=== PATIENT | male | born 1960 ===

== ENCOUNTER 2018-01-12 12:43 | Emergency (ER) | payer BC ==
[2018-01-12] MEDS ORDERED: TETANUS & DIPHTHERIA TOX,ADULT 0.5 ML VIAL ONE (13:16)
[2018-01-12] MEDS ORDERED: LIDOCAINE 1% MPF 30 ML VIAL ONE (13:16)
--- NOTE | 2018-01-12 14:11 | RAD REPORT ---
EXAM DESCRIPTION: RAD - Chest Single View - 01/12/2018 2:01 pm CLINICAL HISTORY: Left-sided chest and rib pain COMPARISON: None. TECHNIQUE: AP portable chest image was obtained 1344 hours . FINDINGS: Lungs are clear. Heart and vasculature are normal. No measurable pleural effusion and no p neumothorax. No gross rib abnormality seen. Fine rib detail is limited on portable imaging. No acute bone finding suspected. No acute aortic findings suspected. IMPRESSION: No acute cardiopulmonary process.
--- NOTE | 2018-01-12 14:14 | RAD REPORT ---
EXAM DESCRIPTION: RAD - Hand Right 3 View - 01/12/2018 2:01 pm CLINICAL HISTORY: Fall, right hand pain, laceration COMPARISON: None. FINDINGS: No fracture is identified. There is no dislocation or periosteal reaction noted. Configur ation of the scaphoid bone is believed to be normal variant rather than scaphoid fracture. Correlatio n can be made with any point tenderness at the anatomic snuff box. Patient has a wide flattened conto ur to the fourth proximal phalanx head. The joint space is narrowed. Soft tissues are prominent. This arthritic pattern maybe from remote trauma. No foreign body in the soft tissues. IMPRESSION: No acute right hand fracture identified. Degenerative changes to the fourth PIP joint may be the sequela of remote trauma. Configuration of the scaphoid is believed to be normal variant rather than scaphoid fracture. Follow- up or directed imaging could be performed if the patient has point tenderness at the anatomic snuff b ox.
--- NOTE | 2018-01-12 14:41 | EDPHYS ---
Physician Documentation [facility] Name: Arnel Rees Age: 57 yrs Sex: Male : 1960 Arrival Date: 01/12/2018 Time: 12:47 Bed 27 Private MD: None, None ED Physician Gibran Dillard HPI: 01/12 13:59 This 57 yrs old Male presents to ER via Ambulatory with complaints of Fall Injury - LAC kb TO HAND, Pain All Over. 13:59 Details of fall: The patient fell from a height, from a ladder, approximately 3 feet. kb Onset: The symptoms/episode began/occurred just prior to arrival. Associated injuries: The patient sustained injury to the chest, specifically the left lateral anterior chest, pain with breathing, pain with movement, tenderness, right hand, painful injury, heel of left hand, laceration, 4 cm(s). Severity of symptoms: At their worst the symptoms were moderate, in the emergency department the symptoms are unchanged. The patient has not experienced similar symptoms in the past. The patient has not recently seen a physician. Historical: - Allergies: 12:57 No Known Allergies; aj1 - Home Meds: 12:57 None [Active]; aj1 - PMHx: 12:57 Hyperlipidemia; aj1 - Immunization history:: Flu vaccine is up to date. - Social history:: Smoking status: Patient uses tobacco products, smokes one-half pack cigarettes per day. - Immunization history: Last tetanus immunization: unknown. - Ebola Screening: : Patient denies travel to an Ebola-affected area in the 21 days before illness onset. ROS: 13:58 Constitutional: Negative for fever, chills, and weight loss, Eyes: Negative for injury, kb pain, redness, and discharge, ENT: Negative for injury, pain, and discharge, Neck: Negative for injury, pain, and swelling, Respiratory: Negative for shortness of breath, cough, wheezing, and pleuritic chest pain, Abdomen/GI: Negative for abdominal pain, nausea, vomiting, diarrhea, and constipation, Neuro: Negative for headache, weakness, numbness, tingling, and seizure. 13:58 Cardiovascular: Positive for chest pain, of the left lateral anterior chest, Negative for edema, orthopnea, palpitations, paroxysmal nocturnal dyspnea. 13:58 MS/extremity: Positive for pain, tenderness, of the right hand. 13:58 Skin: Positive for laceration(s), of the heel of left hand. Exam: 13:55 Constitutional: This is a well developed, well nourished patient who is awake, alert, kb and in no acute distress. Head/Face: Normocephalic, atraumatic. Cardiovascular: Regular rate and rhythm with a normal S1 and S2. No gallops, murmurs, or rubs. Normal PMI, no JVD. No pulse deficits. Respiratory: Lungs have equal breath sounds bilaterally, clear to auscultation and percussion. No rales, rhonchi or wheezes noted. No increased work of breathing, no retractions or nasal flaring. Abdomen/GI: Soft, non-tender, with normal bowel sounds. No distension or tympany. No guarding or rebound. No evidence of tenderness throughout. Neuro: Awake and alert, GCS 15, oriented to person, place, time, and situation. Cranial nerves II-XII grossly intact. Motor strength 5/5 in all extremities. Sensory grossly intact. Cerebellar exam normal. Normal gait. 13:55 Chest/axilla: Inspection: normal, Palpation: tenderness, that is moderate, of the left lateral anterior chest, that totally reproduces the patient's complaints. 13:55 Musculoskeletal/extremity: Extremities: grossly normal except: noted in the right hand: pain, ROM: intact in all extremities, Circulation is intact in all extremities. Sensation intact. 13:55 Skin: injury, laceration(s), the wound is approximately 4 cm(s), of the heel of left hand, that can be described as clean, no foreign body, linear, without bleeding. Vital Signs: 12:57 BP 145 / 92; Pulse 99; Resp 18; Temp 97.1; Pulse Ox 99% on R/A; Weight 77.11 kg (R); aj1 Height 5 ft. 10 in. (177.80 cm); Pain 8/10; 14:15 BP 140 / 8; Pulse 90; Resp 17; Pulse Ox 99% on R/A; kr2 12:57 Body Mass Index 24.39 (77.11 kg, 177.80 cm) aj1 [place] Coma Score: 13:19 Eye Response: spontaneous(4). Verbal Response: oriented(5). Motor Response: obeys kr2 commands(6). Total: 15. Trauma Score (Adult): 13:19 Eye Response: spontaneous(1); Verbal Response: oriented(1); Motor Response: obeys kr2 commands(2); Systolic BP: > 89 mm Hg(4); Respiratory Rate: 10 to 29 per min(4); [place] Score: 15; Trauma Score: 12 Laceration: 14:39 Wound Repair of 4cm ( 1.6in ) subcutaneous laceration to heel of left hand. Linear kb shaped.. Distal neuro/vascular/tendon intact. Anesthesia: Wound infiltrated with 4 mls of 1% lidocaine. Wound prep: Extensive cleansing with hibiclenz by me, Wound irrigation with saline by me. Skin closed with 6 4-0 Prolene using interrupted sutures and sterile technique. Dressed with Neosporin, 4x4's. Patient tolerated well. MDM: 13:01 Patient medically screened. kb 13:55 Data reviewed: vital signs, nurses notes. Data interpreted: Pulse oximetry: on room air kb is 99 %. Interpretation: normal. 14:40 Counseling: I had a detailed discussion with the patient and/or guardian regarding: the kb historical points, exam findings, and any diagnostic results supporting the discharge/admit diagnosis, radiology results, the need for outpatient follow up, a family practitioner, to return to the emergency department if symptoms worsen or persist or if there are any questions or concerns that arise at home. 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 Exp: kr2 02/24/2020. Lot #: [id number]. } Route: IM; Site: left deltoid; 14:28 Follow up: Response: No adverse reaction kr2 14:28 Drug: Lidocaine (2 %) 1 vials {Note: Administered by MAXINE English.} Volume: 5 ml; kr2 Route: Infiltration; 14:49 Follow up: Response: No adverse reaction kr2 Disposition: 16:53 Co-signature as Attending Physician, Gibran Dillard MD. rn Disposition: 01/12/18 14:41 Discharged to Home. Impression: Contusion of left front wall of thorax, Laceration without foreign body of left hand. - Condition is Stable. - Discharge Instructions: Chest Contusion, [id number], Laceration Care, Adult, [id number]. - Prescriptions for Tylenol- Codeine #3 300-30 mg Oral Tablet - take 1 tablet by ORAL route every 6 hours As needed; 15 tablet. - Medication Reconciliation Form, Thank You Letter, Antibiotic Education, Prescription Opioid Use form. - Follow up: Emergency Department; When: As needed; Reason: Worsening of condition. Follow up: Private Physician; When: 2 - 3 days; Reason: Recheck today's complaints, Continuance of care, Re-evaluation by your physician. Signatures: Dispatcher [employer] EDMS Lina Jones, ZIPPER SLIDE ATTACHER-C ZIPPER SLIDE ATTACHER-Ckb Altagracia Fernandez RN RN aj1 Gibran Dillard MD MD rn Reaves, Karey, RN RN kr2 Corrections: (The following items were deleted from the chart) 14:53 14:41 01/12/2018 14:41 Discharged to Home. Impression: Contusion of left front wall of kr2 thorax; Laceration without foreign body of left hand. Condition is Stable. Forms are Medication Reconciliation Form, Thank You Letter, Antibiotic Education, Prescription Opioid Use. Follow up: Emergency Department; When: As needed; Reason: Worsening of condition. Follow up: Private Physician; When: 2 - 3 days; Reason: Recheck today's complaints, Continuance of care, Re-evaluation by your physician. kb
--- NOTE | 2018-01-12 14:41 | ER ---
Nurse's Notes [facility] Name: Arnel Rees Age: 57 yrs Sex: Male : 1960 Arrival Date: 01/12/2018 Time: 12:47 Bed 27 Private MD: None, None Diagnosis: Contusion of left front wall of thorax;Laceration without foreign body of left hand Presentation: 01/12 12:55 Presenting complaint: Patient states: He was working on the ceiling and he lost his aj1 balance fell off the ladder approximately 3 feet. Patient reports landing on his left side, reports pain to left ribs, left hand and right hand. Laceration to left hand covered with a bandage. Denies hitting head, no LOC, no vomiting. Transition of care: patient was not received from another setting of care. Onset of symptoms was January 12, 2018 at 11:00. Risk Assessment: Do you want to hurt yourself or someone else? Patient reports no desire to harm self or others. Initial Sepsis Screen: Does the patient meet any 2 criteria? HR > 90 bpm. No. Patient's initial sepsis screen is negative. Does the patient have a suspected source of infection? No. Patient's initial sepsis screen is negative. Care prior to arrival: None. 12:55 Method Of Arrival: Ambulatory aj1 12:55 Acuity: MAR[place] 4 aj1 13:20 Mechanism of Injury: Fall from ladder approximately 3 feet. Trauma event details: kr2 Injury occurred in the [facility], Injury occurred: in a public building. Injury occurred: January 12, 2018. Triage Assessment: 12:57 General: Appears in no apparent distress. comfortable, Behavior is calm, cooperative, aj1 appropriate for age. Pain: Complains of pain in left lateral anterior chest, left lateral posterior chest, right hand and left hand Pain currently is 8 out of 10 on a pain scale. Neuro: Level of Consciousness is awake, alert, obeys commands. Cardiovascular: Patient's skin is warm and dry. Respiratory: Airway is patent Respiratory effort is even, unlabored, Respiratory pattern is regular, symmetrical. Trauma Activation: Not Applicable Physician: ED Physician; Name: ; Notified At: ; Arrived At: Physician: General Surgeon; Name: ; Notified At: ; Arrived At: Physician: Radiology; Name: ; Notified At: ; Arrived At: Physician: Respiratory; Name: ; Notified At: ; Arrived At: Physician: Lab; Name: ; Notified At: ; Arrived At: Historical: - Allergies: 12:57 No Known Allergies; aj1 - Home Meds: 12:57 None [Active]; aj1 - PMHx: 12:57 Hyperlipidemia; aj1 - Immunization history:: Flu vaccine is up to date. - Social history:: Smoking status: Patient uses tobacco products, smokes one-half pack cigarettes per day. - Immunization history: Last tetanus immunization: unknown. - Ebola Screening: : Patient denies travel to an Ebola-affected area in the 21 days before illness onset. Screenin:19 Abuse screen: Denies threats or abuse. Denies injuries from another. Nutritional kr2 screening: No deficits noted. Tuberculosis screening: No symptoms or risk factors identified. Fall Risk None identified. Primary Survey: 13:19 Breathing/Chest: Respiratory pattern: regular, Respiratory effort: spontaneous, kr2 unlabored, Breath sounds: clear, bilaterally. Chest inspection: symmetrical rise and fall of the chest. Circulation: Heart tones present. Skin color: pink, Skin temperature: warm, dry. Disability Alert. 13:45 Reassessment Breathing/Chest Respiratory pattern Regular Respiratory effort Spontaneous kr2 Unlabored Chest inspection Symmetrical. Assessment: 13:16 General: Appears in no apparent distress. comfortable, well groomed, Behavior is calm, kr2 cooperative, appropriate for age. Pain: Complains of pain in left hand and right hand and left lateral posterior chest and left lateral anterior chest Pain does not radiate. Pain currently is 8 out of 10 on a pain scale. Quality of pain is described as aching, tender, Is continuous, Alleviated by rest. Neuro: Level of Consciousness is awake, alert, obeys commands, Oriented to person, place, time, situation. Cardiovascular: Capillary refill < 3 seconds in bilateral fingers Patient's skin is warm and dry. Respiratory: Airway is patent Respiratory effort is even, unlabored, Respiratory pattern is regular, symmetrical. GI: Abdomen is flat, non-distended, Bowel sounds present X 4 quads. Patient currently denies nausea, vomiting. EENT: Nares are clear bilaterally Oral mucosa is moist. Derm: Skin is healthy with good turgor, Skin is pink, warm \T\ dry. Musculoskeletal: Circulation, motion, and sensation intact. Injury Description: Laceration sustained to left hand is clean, 0.5 to 2.5 cm long, not bleeding, was sustained 30-60 minutes ago. no active bleeding noted at this time. 14:30 Reassessment: Patient appears in no apparent distress at this time. Patient and/or kr2 family updated on plan of care and expected duration. Pain level reassessed. Patient is alert, oriented x 3, equal unlabored respirations, skin warm/dry/pink. 14:50 Reassessment: Patient appears in no apparent distress at this time. Patient and/or kr2 family updated on plan of care and expected duration. Pain level reassessed. Patient is alert, oriented x 3, equal unlabored respirations, skin warm/dry/pink. Laceration to hand washed with soap and water, dried, thin layer of antibiotic ointment applied, covered with nonstick dressing and gauze secured with tape. Vital Signs: 12:57 BP 145 / 92; Pulse 99; Resp 18; Temp 97.1; Pulse Ox 99% on R/A; Weight 77.11 kg (R); aj1 Height 5 ft. 10 in. (177.80 cm); Pain 8/10; 14:15 BP 140 / 8; Pulse 90; Resp 17; Pulse Ox 99% on R/A; kr2 12:57 Body Mass Index 24.39 (77.11 kg, 177.80 cm) aj1 [place] Coma Score: 13:19 Eye Response: spontaneous(4). Verbal Response: oriented(5). Motor Response: obeys kr2 commands(6). Total: 15. Trauma Score (Adult): 13:19 Eye Response: spontaneous(1); Verbal Response: oriented(1); Motor Response: obeys kr2 commands(2); Systolic BP: > 89 mm Hg(4); Respiratory Rate: 10 to 29 per min(4); [place] Score: 15; Trauma Score: 12 ED Course: 12:47 Patient arrived in ED. sb2 12:48 None, None is Private Physician. sb2 12:57 Triage completed. aj1 12:57 Arm band placed on. aj1 13:00 [facility] kb 13:00 Gibran Dillard MD is Attending Physician. kb 13:01 Katrin Trevino RN is Primary Nurse. kr2 13:10 Patient has correct armband on for positive identification. Bed in low position. Call kr2 light in reach. Side rails up X 1. Pulse ox on. NIBP on. Door closed. Warm blanket given. Head of bed elevated. 13:10 Patient maintains SpO2 saturation greater than 95% on room air. Thermoregulation: warm kr2 blanket given to patient. 13:40 Diet: Patient given water. jp3 14:00 X-ray completed. Portable x-ray completed in exam room. Patient tolerated procedure ml well. 14:01 Chest Single View XRAY In Process Unspecified. EDMS 14:01 Hand Right 3 View XRAY In Process Unspecified. EDMS 14:51 No provider procedures requiring assistance completed. Patient did not have IV access kr2 during this emergency room visit. 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 Exp: kr2 02/24/2020. Lot #: [id number]. } Route: IM; Site: left deltoid; 14:28 Follow up: Response: No adverse reaction kr2 14:28 Drug: Lidocaine (2 %) 1 vials {Note: Administered by MAXINE English.} Volume: 5 ml; kr2 Route: Infiltration; 14:49 Follow up: Response: No adverse reaction kr2 Intake: 14:52 PO: 0ml; Total: 0ml. kr2 Outcome: 14:41 Discharge ordered by . kb 14:52 Discharged to home ambulatory. kr2 14:52 Condition: good 14:52 Discharge instructions given to patient, Instructed on discharge instructions, follow up and referral plans. medication usage, wound care, Demonstrated understanding of instructions, follow-up care, medications, wound care, Prescriptions given X 1. 14:53 Patient's length of stay was not longer than 2 hours. kr2 14:53 Patient left the ED. kr2 Signatures: Dispatcher [employer] EDNY Lina Jones, DEMOND CRUZ-Altagracia Elias RN RN [email or web address] Gunjan Campbell Karey, RN RN kr2 Sharee Mark2 Vish Anaya jp3
== END 2018-01-12 14:53 | disposition home or self-care (01) ==
LOC: ER 12:43
PROC: 0JQK0ZZ Repair Left Hand Subcutaneous Tissue and Fascia, Open Approach (ICD-10-PCS; principal; 2018-01-12)
DX: S20.212A Contusion of left front wall of thorax, initial encounter (principal); S61.412A Laceration without foreign body of left hand, initial encounter; W11.XXXA Fall on and from ladder, initial encounter; Y93.9 Activity, unspecified; Y92.9 Unspecified place or not applicable; Z23 Encounter for immunization; E78.5 Hyperlipidemia, unspecified; F17.210 Nicotine dependence, cigarettes, uncomplicated
CPT/HCPCS: 71045; 90714; 99284